=== PATIENT | male | born 1965 | race Caucasian/White ===

== ENCOUNTER → 2023-10-28 06:21 | Outpatient (REF) | payer BC, SELFPAY ==
[2023-10-28 07:52] LABS: % Basophils 0.6 % (0-2); % Eosinophils 3.9 % (0-6); % Immature Granulocytes 0.2 % (0-0.5); % Lymphocytes 27.1 % (20.5-51.1); % Monocytes 7.1 % (1.7-9.3); % Neutrophils 61.1 % (42.2-75.2); Absolute Eosinophils 0.3 10^3/uL (0-0.7); Absolute Lymphocytes 1.8 10^3/uL (1.2-3.4); Absolute Monocytes 0.5 10^3/uL (0.1-0.6); Absolute Neutrophils 4.1 10^3/uL (1.4-6.5); Hematocrit 43.5 % (39.0-52.0); Hemoglobin 14.4 g/dL (13.0-18.0); Mean Corp Hgb Conc. 33.1 g/dL (33.0-37.0); Mean Corpuscular Hgb 29.7 pg (27.0-31.0); Mean Corpuscular Volume 89.7 fL (80.0-94.0); Mean Platelet Volume 9.9 fL (7.4-10.4); Nucleated Red Blood Cells % 0 % (-); Platelet Count 223 10^3/uL (130-400); Red Blood Cell Count 4.85 10^6/uL (4.70-6.10); Red Cell Dist. Width 12.3 % (11.5-14.5); White Blood Cell Count 6.6 10^3/uL (4.8-10.8)
[2023-10-28 08:11] LABS: Microalbumin, Random Urine 0.6 mg/dl (0.6-1.7); Microalbumin/creatinine Ratio 13.2 mg/g
[2023-10-28 10:07] LABS: Glycohemoglobin (HgbA1c) 6.1 % (4.0-5.6)
[2023-10-28 10:15] LABS: ALT (SGPT) 12 U/L (0-50); AST (SGOT) 21 U/L (17-59); Albumin 4.6 g/dl (3.5-5.0); Alkaline Phosphatase 97 U/L (38-126); Blood Urea Nitrogen 11 mg/dl (9-20); Carbon Dioxide 28 mmol/L (22-30); Chloride 100 mmol/L (98-107); Glucose 83 mg/dl (70-99); HDL Cholesterol 33 mg/dl; LDL Cholesterol, Calculated 68 mg/dl; Potassium 5.6 mmol/L (3.5-5.1); Sodium 138 mmol/L (135-145); Total Bilirubin 0.6 mg/dl (0.2-1.3); Total Cholesterol 117 mg/dl (50-199); Total Protein 7.3 g/dl (6.3-8.2); Triglyceride 83 mg/dl (10-149); Very Low Density Lipoprotein 16 mg/dl (0-30); eGFR > 60.00
[2023-10-28 10:34] LABS: Vitamin D, 25-OH*** 101 ng/mL (30-80)
[2023-10-28 10:47] LABS: PSA, Total - Screen 1.28 ng/ml (0.0-4.0); TSH Reflex To Free T4 1.13 uIU/ml (0.47-4.68)
== END ==
LOC: REG 06:21
PROVIDERS: ATTENDING PHYSICIAN Registered Nurse
DX: Z76.89 Persons encountering health services in other specified circumstances (principal); I10 Essential (primary) hypertension; E78.2 Mixed hyperlipidemia; E11.59 Type 2 diabetes mellitus with other circulatory complications; Z79.4 Long term (current) use of insulin
CPT/HCPCS: 36415; 80053; 80061; 82043; 82306; 82570; 83036; 84443; 85025; G0103

== ENCOUNTER → 2023-11-24 06:28 | Outpatient (REF) | payer BC, SELFPAY ==
[2023-11-24 08:30] LABS: Blood Urea Nitrogen 13 mg/dl (9-20); Carbon Dioxide 29 mmol/L (22-30); Chloride 100 mmol/L (98-107); Glucose 96 mg/dl (70-99); Potassium 5.3 mmol/L (3.5-5.1); Sodium 139 mmol/L (135-145); eGFR > 60.00
[2023-11-24 08:41] LABS: Calcium 10.1 mg/dl (8.4-10.2)
== END ==
LOC: REG 06:28
PROVIDERS: ATTENDING PHYSICIAN Registered Nurse
DX: E87.5 Hyperkalemia (principal)
CPT/HCPCS: 36415; 80048

== ENCOUNTER 2023-11-30 03:37 | Emergency (ER) | payer BC, SELFPAY ==
[2023-11-30 03:49] VITALS: BP 169/82
[2023-11-30 04:00] VITALS: BMI 26.6
[2023-11-30 04:02] VITALS: BP 157/78
--- NOTE | 2023-11-30 04:30 | ED.GENMED ---
History of Present Illness
General
Chief Complaint: Flank Pain
Time Seen by Provider: 11/30/23 04:09
History of Present Illness
History of Present Illness:
58-year-old male with history of diabetes and hypertension presenting to the emergency department for left flank pain. Patient reports symptoms for the past week. Denies inciting injury or trauma. He has been taking ibuprofen for the pain without
significant relief. Denies any history of kidney stones. Does report that his urine has been dark in color. Denies any changes in stool. Denies chest pain or difficulty breathing. Denies fever. Denies any history of abdominal surgeries.
Denies additional acute medical complaints
Phy Exam
Physical Exam
Physical Exam:
General: Well-appearing, no clinical signs of dehydration, nontoxic and in no acute distress
HEENT: protecting airway
Neck: appears supple
CV: Normal heart rate, regular rhythm, no evidence of cyanosis
Resp: No accessory muscle use, no increased work of breathing, lungs clear to auscultation bilaterally
Abd: Soft and non-distended, no tenderness to palpation, mild left CVA tenderness
Extremities: No deformities, no swelling, no erythema, pulses and sensation intact
Neuro: alert, no focal neurologic deficit
: deferred
Rectal: deferred
Psych: Normal affect
Skin: Intact
Course
Orders/Labs/Results
Orders:
Orders
11/30/23 04:10
Complete Blood Count/With Diff Urgent
Comprehensive Metabolic Panel Urgent
Urinalysis Reflex To Culture Urgent
Date Specimen was Collected: 11/30/23
Time Specimen was Collected: 03:53
11/30/23 04:27
CT Abd/pelvis W Iv Cont Urgent
Comment:
Reason For Exam: L-flank pain x 1 week
Ketorolac [Toradol] 15 mg IV NOW STA
Abnormal Lab Results
11/30/23
04:10
RBC 4.59 L 10^6/uL
(4.70-6.10)
Lymphocytes % 18.7 L %
(20.5-51.1)
Creatinine 0.5 L mg/dL
(0.7-1.3)
Glucose 117 H mg/dl
(70-99)
11/30/23 04:10
11/30/23 04:10
Vital Signs
Initial and Last Documented VS:
Initial Vital Signs
Temp Pulse Resp BP Pulse Ox
98 F 65 20 169/82 100
11/30/23 03:49 11/30/23 03:49 11/30/23 03:49 11/30/23 03:49 11/30/23 03:49
Last Documented Vital Signs
Temp Pulse Resp BP Pulse Ox
98 F 65 18 141/79 95
11/30/23 03:49 11/30/23 03:49 11/30/23 05:00 11/30/23 05:00 11/30/23 05:01
MDM/Problems Addressed
MDM/Problems Addressed:
58-year-old male with history of diabetes and hypertension presenting for left flank pain for 1 week. Vital signs significant for mild hypertension.
On physical exam, patient nontoxic, resting comfortably. No reproducible tenderness to the abdomen. Mild tenderness to the left. No overlying rashes or skin changes. Possible musculoskeletal component. Nephrolithiasis also consideration.
Ascending urinary tract infection is also consideration. Given duration of symptoms, will screen with laboratory analysis, urinalysis, CT imaging. Toradol administered for pain.
06:00-patient's labs are unremarkable. Urine without sign of infection. CT without acute process. At this time suspect likely musculoskeletal etiology. Feel stable for discharge with continued outpatient supportive therapy. Will prescribe
lidocaine patch and muscle relaxer. Return precautions discussed and patient verbalized understanding.
*Critical Care Note
Total Time (30-74mins, 75-104mins- exclusive of procedures): Not Applicable
ED Attending Note
-
Portions of this chart may have been created with voice recognition software.� Occasional wrong word or��sound alike� substitutions may have occurred due to the inherent limitations of voice recognition software.
Discharge Plan
Departure
Prescriptions:
No Action
metformin 500 mg Tablet
500 mg PO BID
atorvastatin 20 mg Tablet
20 mg PO DAILY
lisinopril 5 mg Tablet
5 mg PO DAILY
fluoxetine 20 mg Capsule
20 mg PO DAILY
lansoprazole 30 mg Tablet,Disintegrat, Delay Rel
30 mg PO DAILY
Levemir Flexpen 100 unit/mL (3 mL) Insulin Pen
25 unit SC DAILY
Rybelsus 7 mg Tablet
7 mg PO DAILY
Referrals:
Robert Hoffman CRNP [Family Provider] -
Interventions
Interventions:
*Risk Screen - Suicide Last Done: 11/30/23 03:49
*General Assessment Last Done: 11/30/23 03:49
*Neglect/Abuse Screening Last Done: 11/30/23 03:49
ED- Fall Risk Assessment Last Done: 11/30/23 03:49
*ED COVID-19 Vaccine History Last Done: 11/30/23 03:49
BN-Ummkpr-Afrmyuaykb Assessment Last Done: 11/30/23 04:08
ED-Male Genitourinary Assessment Last Done: 11/30/23 04:08
Discharge Date and Time
Print Language: CROATIAN
[2023-11-30 04:36] LABS: % Basophils 0.4 % (0-2); % Eosinophils 3.3 % (0-6); % Immature Granulocytes 0.4 % (0-0.5); % Lymphocytes 18.7 % (20.5-51.1); % Monocytes 6.1 % (1.7-9.3); % Neutrophils 71.1 % (42.2-75.2); Absolute Eosinophils 0.3 10^3/uL (0-0.7); Absolute Lymphocytes 1.5 10^3/uL (1.2-3.4); Absolute Monocytes 0.5 10^3/uL (0.1-0.6); Absolute Neutrophils 5.7 10^3/uL (1.4-6.5); Hematocrit 39.2 % (39.0-52.0); Hemoglobin 14.1 g/dL (13.0-18.0); Mean Corpuscular Hgb 30.7 pg (27.0-31.0); Mean Corpuscular Volume 85.4 fL (80.0-94.0); Mean Platelet Volume 9.4 fL (7.4-10.4); Nucleated Red Blood Cells % 0 % (-); Platelet Count 211 10^3/uL (130-400); Red Blood Cell Count 4.59 10^6/uL (4.70-6.10); Red Cell Dist. Width 12.5 % (11.5-14.5)
[2023-11-30] MEDS: TORADOL 15 MG IV (04:37)
[2023-11-30 04:56] LABS: Urine Albumin Negative (Neg - Trace); Urine Bilirubin Negative (Negative); Urine Character Clear (Clear); Urine Color Yellow; Urine Glucose Negative (Negative); Urine Ketone Negative (Negative); Urine Leukocyte Negative (Negative); Urine Nitrite Negative (Negative); Urine Occult Blood Negative (Negative); Urine Urobilinogen Negative (Neg - 1+)
[2023-11-30 05:00] VITALS: BP 141/79
[2023-11-30 05:08] LABS: ALT (SGPT) 12 U/L (0-50); AST (SGOT) 17 U/L (17-59); Albumin 4.2 g/dl (3.5-5.0); Alkaline Phosphatase 103 U/L (38-126); Blood Urea Nitrogen 10 mg/dl (9-20); Calcium 9.4 mg/dl (8.4-10.2); Carbon Dioxide 25 mmol/L (22-30); Chloride 102 mmol/L (98-107); Estimated Creatinine Clearance > 125 ml/min; Glucose 117 mg/dl (70-99); Potassium 4.3 mmol/L (3.5-5.1); Sodium 137 mmol/L (135-145); Total Bilirubin 0.6 mg/dl (0.2-1.3); Total Protein 6.7 g/dl (6.3-8.2); eGFR > 60.00
[2023-11-30 06:00] VITALS: BP 134/86
== END 2023-11-30 06:11 | disposition home or self-care (01) ==
LOC: EMR 03:37
PROVIDERS: EMERGENCY PHYSICIAN Student in an Organized Health Care Education/Training Program; FAMILY PHYSICIAN Registered Nurse
DX: R10.9 Unspecified abdominal pain (principal); M54.6 Pain in thoracic spine; I10 Essential (primary) hypertension; E11.9 Type 2 diabetes mellitus without complications
CPT/HCPCS: 99285; 96374; 74177; 80053; 81003; 85025; Q9967

== ENCOUNTER → 2024-09-07 06:21 | Outpatient (REF) | payer BC, SELFPAY ==
[2024-09-07 09:25] LABS: Microalbumin, Random Urine 1.8 mg/dl (0.6-1.7); Microalbumin/creatinine Ratio 7.5 mg/g
[2024-09-07 10:21] LABS: Glycohemoglobin (HgbA1c) 5.9 % (4.0-5.6)
[2024-09-07 14:08] LABS: TSH Reflex To Free T4 1.17 uIU/ml (0.47-4.68)
[2024-09-07 14:15] LABS: ALT (SGPT) 12 U/L (0-50); AST (SGOT) 16 U/L (17-59); Albumin 4.7 g/dl (3.5-5.0); Alkaline Phosphatase 92 U/L (38-126); Blood Urea Nitrogen 11 mg/dl (9-20); Calcium 9.6 mg/dl (8.4-10.2); Carbon Dioxide 27 mmol/L (22-30); Chloride 105 mmol/L (98-107); Glucose 96 mg/dl (70-99); HDL Cholesterol 33 mg/dl; LDL Cholesterol, Calculated 87 mg/dl; Potassium 4.5 mmol/L (3.5-5.1); Sodium 142 mmol/L (135-145); Total Bilirubin 0.9 mg/dl (0.2-1.3); Total Cholesterol 137 mg/dl (50-199); Total Protein 7.1 g/dl (6.3-8.2); Triglyceride 87 mg/dl (10-149); Very Low Density Lipoprotein 17 mg/dl (0-30); eGFR > 60.00
== END ==
LOC: REG 06:21
PROVIDERS: ATTENDING PHYSICIAN Registered Nurse
DX: E11.59 Type 2 diabetes mellitus with other circulatory complications (principal); I10 Essential (primary) hypertension
CPT/HCPCS: 36415; 80053; 80061; 82043; 82306; 82570; 83036; 84443

== ENCOUNTER → 2025-03-07 13:57 | Outpatient (REF) | payer BC, SELFPAY | LOC: CLAB 13:57 | PROVIDERS: ATTENDING PHYSICIAN Surgery | DX: L02.415 Cutaneous abscess of right lower limb (principal) | CPT/HCPCS: 87070; 87205 ==

== ENCOUNTER 2025-03-22 06:22 | Day surgery (SDC) | payer BC, SELFPAY ==
[2025-03-22 08:57] LABS: Glucose - Point of Care 106 mg/dl (70-99)
== END 2025-03-22 10:48 | disposition home or self-care (01) ==
LOC: GI 06:22
PROVIDERS: ATTENDING PHYSICIAN Specialist
DX: Z12.11 Encounter for screening for malignant neoplasm of colon (principal); K57.30 Diverticulosis of large intestine without perforation or abscess without bleeding; K63.89 Other specified diseases of intestine; K62.1 Rectal polyp; Z86.0101 Personal history of adenomatous and serrated colon polyps; Z80.0 Family history of malignant neoplasm of digestive organs
CPT/HCPCS: 45380; 82962; 88305

== ENCOUNTER → 2025-03-23 07:07 | Outpatient (REF) | payer BC, SELFPAY ==
[2025-03-23 09:28] LABS: ALT (SGPT) 18 U/L (0-50); AST (SGOT) 21 U/L (17-59); Albumin 4.5 g/dl (3.5-5.0); Alkaline Phosphatase 78 U/L (38-126); Blood Urea Nitrogen 11 mg/dl (9-20); Calcium 9.6 mg/dl (8.4-10.2); Carbon Dioxide 30 mmol/L (22-30); Chloride 105 mmol/L (98-107); Glucose 111 mg/dl (70-99); Potassium 5.5 mmol/L (3.5-5.1); Sodium 141 mmol/L (135-145); Total Protein 7.0 g/dl (6.3-8.2); eGFR > 60.00
[2025-03-23 09:52] LABS: PSA, Total - Screen 1.49 ng/ml (0.0-4.0)
[2025-03-23 12:15] LABS: Glycohemoglobin (HgbA1c) 5.9 % (4.0-5.9)
== END ==
LOC: REG 07:07
PROVIDERS: ATTENDING PHYSICIAN Registered Nurse
DX: E11.59 Type 2 diabetes mellitus with other circulatory complications (principal); E78.2 Mixed hyperlipidemia; Z12.5 Encounter for screening for malignant neoplasm of prostate
CPT/HCPCS: 36415; 80053; 83036; G0103

== ENCOUNTER → 2025-04-05 06:55 | Outpatient (REF) | payer BC, SELFPAY | LOC: RAD 06:55 | PROVIDERS: ATTENDING PHYSICIAN Specialist; FAMILY PHYSICIAN Registered Nurse | DX: K38.8 Other specified diseases of appendix (principal) | CPT/HCPCS: 74177; Q9967 ==

== ENCOUNTER 2025-04-23 06:48 | Day surgery (SDC) | payer BC, SELFPAY ==
[2025-04-17 13:53] VITALS: BMI 26.0
[2025-04-23 13:21] VITALS: BMI 23.7
[2025-04-23 13:27] VITALS: BP 146/80; BMI 23.7
[2025-04-23 13:39] LABS: Glucose - Point of Care 95 mg/dl (70-99)
[2025-04-23] MEDS: NORMOSOL-R/PLASMALYTE-A 1000 IV (13:43)
[2025-04-23] MEDS: TYLENOL 1000 MG PO (13:43)
--- NOTE | 2025-04-23 14:01 | W.SUR.PREOP ---
Pre-Operative Surgical Note
-
I have examined this patient prior to the performance of the scheduled procedure.
The patient's condition is unchanged from the time of the current History and
Physical and the patient is able to undergo the scheduled procedure.
[2025-04-23 16:02] VITALS: BP 146/80; BP 163/73
[2025-04-23 16:08] LABS: Glucose - Point of Care 134 mg/dl (70-99)
--- NOTE | 2025-04-23 16:12 | W.IMMPOSTOP ---
Addendum entered and electronically signed by Eddie Cote MD 04/23/25 16:35:
#[id number]
Original Note:
Surgical Immed Post Op Note
-
Primary Surgeon: Eddie Cote MD
Assisting Surgeon: Janae Abdi PA-c
Pre-op Diagnosis: Abnormal imaging of the appendix; right thigh sebaceous cyst
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
Procedure Performed: Laparoscopic appendectomy with partial cecectomy (preservation of ileocecal valve)
Excision right thigh sebaceous cyst; 3 cm
Anesthesia Type: GETA +0.25% Marcaine
Specimen / Cultures: Appendix with partial cecectomy; sebaceous cyst right thigh
Estimated Blood Loss: 10 mL
Complications: None immediate
Operative Findings: Dilated appendix with surrounding chronic inflammatory adhesions. Appendectomy completed with resection of adjacent peritoneum, mesoappendix and cecum up to level of ileocecal valve. No disruption of appendix with appendectomy.
No additional incidental findings.
Right side sebaceous cyst excised; 3 cm cyst including margin
[2025-04-23 16:15] VITALS: BP 161/78
[2025-04-23 16:30] VITALS: BP 163/80
[2025-04-23 16:46] VITALS: BP 166/81
[2025-04-23 17:08] VITALS: BP 170/89
== END 2025-04-23 17:12 | disposition home or self-care (01) ==
LOC: SDS 06:48
PROVIDERS: ATTENDING PHYSICIAN Surgery; FAMILY PHYSICIAN Registered Nurse
DX: K38.8 Other specified diseases of appendix (principal); L72.0 Epidermal cyst
CPT/HCPCS: 44970; 11403; 36415; 82962; 88304; 88307; 93005; J1335